=== PATIENT | female | born 1935 | race Caucasian/White ===

== ENCOUNTER 2022-05-03 08:09 | Day surgery (SDC) | payer OTHER ==
[2022-04-28 16:30] VITALS: BMI 24.0
[2022-05-03] MEDS ORDERED: ONDANSETRON 4 MG/2 ML VIAL ONE (09:03)
[2022-05-03] MEDS ORDERED: DEXAMETHASONE SOD PHOSPHATE 4 MG/1 ML VIAL ONE (09:03)
[2022-05-03] MEDS ORDERED: PROPOFOL 20 ML ONE (09:28)
[2022-05-03] MEDS ORDERED: LACTATED RINGERS SOLUTION 1,000 ML IV SCH (10:15)
[2022-05-03] MEDS ORDERED: ONDANSETRON 4 MG/2 ML VIAL IVPUSH PRN (10:15)
[2022-05-03] MEDS ORDERED: oxyCODONE HCL 5 MG TABLET PO PRN (10:15)
[2022-05-03] MEDS ORDERED: ACETAMINOPHEN 325 MG TABLET (FP) PO PRN (10:15)
[2022-05-03 10:21] VITALS: RESP 16; TEMP 97
[2022-05-03 10:51] VITALS: BP 144/68; PULSE 68
== END 2022-05-03 10:50 | disposition home or self-care (01) ==
LOC: FASU 08:09
PROVIDERS: ATTEND Orthopaedic Surgery Hand Surgery
PROC: 0JCJ0ZZ Extirpation of Matter from Right Hand Subcutaneous Tissue and Fascia, Open Approach (ICD-10-PCS; principal; 2022-05-03 09:39)
DX: M79.5 Residual foreign body in soft tissue (principal)
CPT/HCPCS: 73130-TC-RT-FY; 88300-TC